=== PATIENT | female | born 1985 | race Caucasian/White ===

== ENCOUNTER → 2024-02-26 17:57 | Outpatient (REF) | payer BC, SELFPAY | LOC: MRI 17:57 | PROVIDERS: ATTENDING PHYSICIAN Family Medicine | DX: M54.16 Radiculopathy, lumbar region (principal); R20.2 Paresthesia of skin; R32 Unspecified urinary incontinence | CPT/HCPCS: 72148 ==

== ENCOUNTER → 2024-03-14 06:57 | Outpatient (REF) | payer BC, SELFPAY | LOC: HWRAD 06:57 | PROVIDERS: ATTENDING PHYSICIAN Family Medicine | DX: R79.89 Other specified abnormal findings of blood chemistry (principal); R94.5 Abnormal results of liver function studies | CPT/HCPCS: 76700 ==

== ENCOUNTER 2024-09-12 16:38 | Emergency (ER) | payer BC, SELFPAY ==
[2024-09-12 16:39] VITALS: BP 150/91
[2024-09-12 17:11] VITALS: BP 118/88
[2024-09-12] MEDS: OMNIPAQUE 50 ML PO (17:40)
[2024-09-12 17:42] VITALS: BMI 26.7
[2024-09-12 17:51] LABS: % Basophils 0.7 % (0-2); % Eosinophils 0.7 % (0-6); % Monocytes 6.4 % (1.7-9.3); % Neutrophils 52.2 % (42.2-75.2); Absolute Lymphocytes 1.8 10^3/uL (1.2-3.4); Absolute Monocytes 0.3 10^3/uL (0.1-0.6); Absolute Neutrophils 2.3 10^3/uL (1.4-6.5); Hematocrit 40.1 % (37.0-47.0); Hemoglobin 13.6 g/dL (12.0-16.0); Mean Corp Hgb Conc. 33.9 g/dL (33.0-37.0); Mean Corpuscular Hgb 28.6 pg (27.0-31.0); Mean Corpuscular Volume 84.4 fL (81.0-99.0); Mean Platelet Volume 9.1 fL (7.4-10.4); Nucleated Red Blood Cells % 0 %; Platelet Count 211 10^3/uL (130-400); Red Blood Cell Count 4.75 10^6/uL (4.20-5.40); Red Cell Dist. Width 12.3 % (11.5-14.5); White Blood Cell Count 4.4 10^3/uL (4.8-10.8)
--- NOTE | 2024-09-12 17:52 | EDRN ---
Pt is aware urine spec needed. Dr. Langston in room w/ pt at this time.
[2024-09-12 18:00] VITALS: BP 115/78
--- NOTE | 2024-09-12 18:00 | ED.GENMED ---
History of Present Illness
General
Chief Complaint: Abdominal Symptoms
Source: patient
Exam Limitations: none
Time Seen by Provider: 09/12/24 17:10
Nursing documentation reviewed up to this point in time: agreed with
History of Present Illness
History of Present Illness:
38-year-old female with past medical history of asthma, hyperlipidemia, PUD, endometriosis who presents with abdominal pain. Patient reports onset of symptoms about a week ago and they have been constant and generally worsening since then. She
reports that initially she attributed her symptoms to her normal endometriosis pain as they occurred around the same time of the month (she is currently on her menstrual period). However she says that her menstrual period is essentially finished
and typically at this point in her period the pain would be essentially resolved; instead pain has been getting worse. She also reports pain is in a different location typically she has pelvic pain but for the past week the pain has been located in
the right lower quadrant. She has associated nausea no vomiting. She has had some loose stools. She has not had any urinary symptoms. She did have her normal vaginal bleeding but no heavier than usual. Because symptoms were not improving she
called her GI doctor (Dr. Le) and was seen in the office today, when they evaluated her they referred her to the emergency room to be evaluated for appendicitis. Prior surgical history includes prior gastric sleeve, laparoscopy for
endometriosis, cholecystectomy, bilateral silpingectomy, abdominoplasty.
Past History
Past History
ED Past Medical History: Asthma, GERD (gastric ulcer) and Other (Concussions, endometriosis, Migraines, PCOS, anxiety, iron deficiency anemia, possible autonomic dysfunction, gastritis, UTI, Bleeding ulcers)
ED Past Surgical History: Cholecystectomy, Gynecological (Endoscopic procedure for endometriosis) and Other (Gastrectomy May 2017)
Social History
Tobacco: Former smoker
Alcohol: Occasional
Drug: Marijuana
Personal:
Living: with family
Employment: Employed
Family History
Family History: Other (No history of intracerebral masses she believes her grandmother maybe had intracerebral hemorrhage)
Review of Systems
Review of Systems
All Other Systems: ROS reviewed and negative except as documented in HPI and ROS
Constitutional: Denies fever or chills
EENT: Denies sore throat or runny nose
Respiratory: Denies trouble breathing
Cardiac: Denies chest pain
ABD/GI: Reports abdominal pain, nausea and diarrhea; Denies vomiting
: Reports bleeding; Denies dysuria, frequency or flank pain
Musculoskeletal: Denies neck pain or back pain
Neurological: Denies headache
Phy Exam
Physical Exam
Physical Exam:
General: Awake, alert, oriented x3; appears uncomfortable
Head: Normocephalic, atraumatic
Eyes: Conjunctiva normal, sclera anicteric
Throat: Airway intact, handling secretions
Neck: Trachea midline, supple without meningismus
Lungs: Breathing comfortably no distress
Heart: Regular rate
Abd: Soft, non distended, tender to palpation right lower quadrant with guarding, no masses
Neuro: No gross deficit
Extremities: No edema in extremities, warm well-perfused
Scores
Heart Failure Risk
Heart Failure Risk Score: Not Applicable
Heart Score for Chest Pain Patients
STEMI patient?: Not applicable
Withdrawal Assessment of Alcohol
Withdrawal Assessment Completed?: Not applicable
Course
Orders/Labs/Results
Orders:
Orders
09/12/24 17:11
CT Abd/pel W Iv And Oral Contr Urgent
Comment: surg hx: cholecystectomy, gastric sleeve, salping
Reason For Exam: RLQ abd pain
Iohexol [Omnipaque] See Protocol PO NOW STA
Test Result ONCE
09/12/24 17:36
CRP [C-Reactive Protein] Urgent
Complete Blood Count/With Diff Urgent
Comprehensive Metabolic Panel Urgent
ESR [Erythrocyte Sed Rate] Urgent
HCG, Serum Qualitative Screen Urgent
09/12/24 18:00
0.9% Sodium Chloride 1000 ml [Nss] 1,000 ml IV BOLUS
HYDROmorphone [Dilaudid] 0.5 mg IV NOW STA
09/12/24 18:09
Ondansetron Injectable [Zofran] 4 mg IV NOW STA
09/12/24 20:17
Urinalysis Reflex To Culture Urgent
Date Specimen was Collected: 09/12/24
Time Specimen was Collected: 20:13
09/12/24 20:58
Amoxicillin 875 mg/Clav 125 mg [Augmentin 875 mg/125 mg] 1 tablet PO NOW STA
HYDROmorphone [Dilaudid] 0.5 mg IV NOW STA
Abnormal Lab Results
09/12/24
17:36
WBC 4.4 L 10^3/uL
(4.8-10.8)
AST 78 H U/L
(14-36)
ALT 127 H U/L
(0-35)
09/12/24 17:36
09/12/24 17:36
Vital Signs
Initial and Last Documented VS:
Initial Vital Signs
Temp Pulse Resp BP Pulse Ox
36.9 C 66 16 150/91 100
09/12/24 16:39 09/12/24 16:39 09/12/24 16:39 09/12/24 16:39 09/12/24 16:39
Last Documented Vital Signs
Temp Pulse Resp BP Pulse Ox
36.9 C 45 12 113/82 100
09/12/24 16:39 09/12/24 20:13 09/12/24 20:13 09/12/24 20:13 09/12/24 20:13
MDM/Problems Addressed
Differential Diagnosis Includes:
Appendicitis, ovarian cyst, endometriosis, inflammatory bowel disease, enteritis/colitis
MDM/Problems Addressed:
38-year-old female with history as documented presents for evaluation of right lower quadrant pain for the past week�initially attributed to her normal endometriosis pain but pain is in a different location, more intense and longer lasting.
Hypertensive otherwise normal vitals. Physical exam as above. Plan to place an IV check labs including CBC and a CMP, ESR/CRP. Check hCG. Check urinalysis. Check CT abdomen pelvis. Treat pain and provide fluids. Monitor closely reassess at
the above.
Labs reviewed: CBC and CMP unremarkable�LFTs marginally abnormal but stable. ESR CRP not elevated. hCG negative. Urinalysis no infection. CT abdomen pelvis shows mild colitis but normal appendix, no other acute pathology. Clinical reassessment
patient still having some pain but she feels it is manageable. I did offer admission for pain control but she does not feel this is necessary. Will cover with antibiotics given duration of symptoms. Discussed with GI they will follow-up in the
office. Spoke about return precautions all questions answered.
Chronic conditions affecting care:
Endometriosis
Acute Exacerbation and/or Progression of Chronic Illness:
Hypertensive likely from pain�treat pain but hold on emergent antihypertensives
Acute Exacerbation and/or Progression of Chronic Illness: HTN
*Radiology
Radiology exam reviewed: radiology read reviewed
*Pulse Oximetry
Patient hypoxic: no
*Critical Care Note
Total Time (30-74mins, 75-104mins- exclusive of procedures): Not Applicable
Data Reviewed
Review of Other/Old Records Reveals: Labs and Records
Source: patient, records and physician (Discussed with referring physician (Dr. Le))
Patient Management
Discussion with other providers: Drug Clerk (Discussed with gastroenterology)
ED Attending Note
-
Portions of this chart may have been created with voice recognition software.� Occasional wrong word or��sound alike� substitutions may have occurred due to the inherent limitations of voice recognition software.
Discharge Plan
Departure
Patient Disposition: Home (Routine Discharge)
Date of Disposition: 09/12/24
Time of Disposition: 21:01
Patient with high blood pressure during this ER visit?: Yes
Discharge Problem:
Colitis
Instructions: [place] Diet, Abdominal Pain, Adult ED
Prescriptions:
New
amoxicillin-pot clavulanate 875-125 mg tablet
1 tab PO BID Qty: 14 0RF
No Action
venlafaxine 75 MG capsule,extended release 24hr
75 mg PO HS
lorazepam 1 MG tablet
1 mg PO DAILYPRN PRN (Reason: anxiety)
pediatric multivitamin no.17 1 TABLET tablet,chewable
1 ea PO DAILY
Ferrous Gluconate
27 mg PO DAILY
Patient Comments:
HOLD FOR CONSTIPATION
sennosides [senna] 1 TABLET tablet
1 tab PO HS 0RF
Rx Instructions:
while you take Oxycodone
polyethylene glycol 3350 17 GRAMS powder in packet
17 grams PO DAILY 0RF
pantoprazole 40 MG tablet,delayed release (DR/EC)
40 mg PO DAILY Qty: 30 0RF
docusate sodium 100 MG capsule
100 mg PO BID 0RF
oxycodone 5 MG tablet
5 mg PO Q4HPRN PRN (Reason: moderate pain) Qty: 25 0RF
simethicone [Gas Relief (simethicone)] 80 MG tablet,chewable
80 mg PO TIDPRN PRN (Reason: gas) Qty: 30 0RF
methylprednisolone [Medrol (Jose)] 4 MG tablets,dose pack
4 tab PO . DIRECT Qty: 1 0RF
diazepam 5 MG tablet
5 mg PO TIDPRN PRN (Reason: Pain, spasm) Qty: 10 0RF
cephalexin 500 MG capsule
500 mg PO QID Qty: 20 0RF
cefuroxime axetil 500 MG tablet
500 mg PO BID Qty: 20 0RF
promethazine 25 MG tablet
25 mg PO Q6HPRN PRN (Reason: nausea) Qty: 12 0RF
ondansetron 4 MG tablet,disintegrating
4 mg PO TIDPRN PRN (Reason: nausea) Qty: 15 0RF
methylprednisolone [Methylpred DP] 4 mg tablets,dose pack
See Rx Instructions .ROUTE .COMPLEX Qty: 21 0RF
Rx Instructions:
orally per package directions
Referrals:
Carlo Le MD [Active] - Call in 1-3 days for appt
Shadi Arredondo MD [Family Provider] -
Activity Restrictions/Additional Instructions:
Thank you for visiting the Emergency Department at [facility].
1. Please schedule a follow up appointment as directed. Call first thing tomorrow morning to make an appointment.
2. If indicated, please take your medications as instructed and indicated on discharge paperwork.
3. If any of your symptoms do not improve, or persist, or become more severe within 6-12 hours, please return to the emergency department for further care.
4. Please return to the emergency department if you develop a headache, neck pain/stiffness, fever greater than 100.4F, chest pain, shortness of breath, persistent nausea, vomiting, slurred speech, difficulty walking, numbness/tingling, weakness,
signs of infection or any other symptoms that are worrisome to you.
Please call [phone] if you have any questions.
Interventions
Interventions:
*Risk Screen - Suicide Last Done: 09/12/24 17:47
*General Assessment Last Done: 09/12/24 17:48
*Neglect/Abuse Screening Last Done: 09/12/24 17:47
ED- Fall Risk Assessment Last Done: 09/12/24 17:42
*ED COVID-19 Vaccine History Last Done: 09/12/24 17:47
HA-Ahzamw-Plozcgcjgx Assessment Last Done: 09/12/24 17:42
Discharge Date and Time
Print Language: OCCITAN
[2024-09-12 18:01] LABS: Erythrocyte Sed Rate 4 mm/hour (0-20)
[2024-09-12 18:07] LABS: ALT (SGPT) 127 U/L (0-35); AST (SGOT) 78 U/L (14-36); Albumin 4.5 g/dl (3.5-5.0); Alkaline Phosphatase 71 U/L (38-126); Blood Urea Nitrogen 11 mg/dl (7-17); Calcium 9.9 mg/dl (8.4-10.2); Carbon Dioxide 29 mmol/L (22-30); Estimated Creatinine Clearance 116 ml/min; Glucose 90 mg/dl (70-99); Total Bilirubin 0.4 mg/dl (0.2-1.3); Total Protein 7.1 g/dl (6.3-8.2); eGFR > 60.00
[2024-09-12 18:10] LABS: C-Reactive Protein < 5.00 mg/L (0.0-10.00)
[2024-09-12] MEDS: DILAUDID 0.5 MG IV ×2 (18:13→21:42)
[2024-09-12] MEDS: NSS 1000 IV (18:13)
[2024-09-12] MEDS: ZOFRAN 4 MG IV (18:14)
[2024-09-12 18:21] LABS: Chloride 104 mmol/L (98-107); Potassium 4.4 mmol/L (3.5-5.1); Sodium 142 mmol/L (135-145)
[2024-09-12 18:40] LABS: HCG, Serum Qualitative Screen Negative
[2024-09-12 19:00] VITALS: BP 106/80
--- NOTE | 2024-09-12 19:05 | EDRN ---
Pt states pain is less and more tolerable at 6/10 but still has intermittent pain at 8/10.
[2024-09-12 20:13] VITALS: BP 113/82
--- NOTE | 2024-09-12 20:19 | EDRN ---
Urine spec obtained and sent. Pt states after CT scan pain was down to 5/10 though now has been increasing and is 7.5/10 at this time.
[2024-09-12 20:24] LABS: Urine Albumin Negative (Neg - Trace); Urine Bilirubin Negative (Negative); Urine Character Clear (Clear); Urine Color Yellow; Urine Glucose Negative (Negative); Urine Ketone Negative (Negative); Urine Leukocyte Negative (Negative); Urine Nitrite Negative (Negative); Urine Occult Blood Negative (Negative); Urine Urobilinogen Negative (Neg - 1+)
--- NOTE | 2024-09-12 20:54 | EDRN ---
Dr. Langston in room w/pt at this time.
[2024-09-12 21:00] VITALS: BP 114/87
[2024-09-12] MEDS: AUGMENTIN 875 MG/125 MG 1 TABLET PO (21:42)
== END 2024-09-12 21:49 | disposition home or self-care (01) ==
LOC: EMR 16:38
PROVIDERS: EMERGENCY PHYSICIAN Emergency Medicine; FAMILY PHYSICIAN Family Medicine
DX: K52.9 Noninfective gastroenteritis and colitis, unspecified (principal); R03.0 Elevated blood-pressure reading, without diagnosis of hypertension; J45.909 Unspecified asthma, uncomplicated; E78.5 Hyperlipidemia, unspecified; Z87.891 Personal history of nicotine dependence
CPT/HCPCS: 99285; 96374; 96375; 96361 ×2; 96376; 74177; 80053; 81003; 84703; 85025; 85652; 86140; Q9967

== ENCOUNTER 2025-10-17 12:28 | Emergency (ER) | payer BC, SELFPAY ==
[2025-10-17 12:30] VITALS: BP 144/64
[2025-10-17 13:31] LABS: Hematocrit 35.0 % (37.0-47.0); Hemoglobin 11.5 g/dL (12.0-16.0); Mean Corp Hgb Conc. 32.9 g/dL (33.0-37.0); Mean Corpuscular Volume 77.8 fL (81.0-99.0); Nucleated Red Blood Cells % 0 %; Platelet Count 252 10^3/uL (130-400); Red Cell Dist. Width 14.3 % (11.5-14.5)
--- NOTE | 2025-10-17 13:33 | ED.GENMED ---
History of Present Illness
<Balbir Sandoval PA-C - Last Filed: 10/17/25 15:38>
General
Chief Complaint: Abdominal Pain
Source: patient
Time Seen by Provider: 10/17/25 13:18
History of Present Illness
History of Present Illness:
40-year-old female with past medical history of chronic pain syndrome, endometriosis, status post previous gastric bypass, previous pancreatitis presenting to the emergency department for evaluation of right-sided abdominal pain, 10 days late on her
menstrual (previous bilateral salpingectomy) accompanied with mild nausea but no vomiting. Patient discussed her pain via telephone with her primary care provider/[facility] and was recommended to come to the ER for CT imaging. Patient
with multiple previous abdominal surgeries including the gastric bypass as well as status postcholecystectomy and multiple previous endometriosis laparoscopic procedures. Patient still has her appendix. She took her usual chronic pain medication
this morning. Notes she cannot take anti-inflammatories. History of similar requiring imaging in the past.
Past History
<Balbir Sandoval PA-C - Last Filed: 10/17/25 15:38>
Past History
ED Past Medical History: Asthma, GERD (gastric ulcer) and Other (Concussions, endometriosis, Migraines, PCOS, anxiety, iron deficiency anemia, possible autonomic dysfunction, gastritis, UTI, Bleeding ulcers)
ED Past Surgical History: Cholecystectomy, Gynecological (Endoscopic procedure for endometriosis) and Other (Gastrectomy May 2017)
Social History
Tobacco: Former smoker
Alcohol: Occasional
Drug: Marijuana
Personal:
Living: with family
Employment: Employed
Family History
Family History: Other (No history of intracerebral masses she believes her grandmother maybe had intracerebral hemorrhage)
Review of Systems
<Balbir Sandoval PA-C - Last Filed: 10/17/25 15:38>
Review of Systems
All Other Systems: ROS reviewed and negative except as documented in HPI and ROS
Phy Exam
<Balbir Sandoval PA-C - Last Filed: 10/17/25 15:38>
Physical Exam
Physical Exam:
GENERAL: Alert , in no apparent distress but does appear uncomfortable
EYE: clear conjunctiva b/l
HEAD: NCAT
ENT: o/p clr, mmm.
CARDIAC: Regular rate and rhythm .
LUNGS: Clear breath sounds bilaterally, no acute respiratory distress, no wheezes/rales/rhonchi
ABDOMEN: Soft, without focal tenderness, no r/g, no cvat
NEUROLOGICAL: Alert and oriented
SKIN: Warm and dry, skin intact.
MUSCULOSKELETAL: No edema, well perfused.
PSYCH: Normal and appropriate interaction.
Scores
<Balbir Sandoval PA-C - Last Filed: 10/17/25 15:38>
Heart Failure Risk
Heart Failure Risk Score: Not Applicable
Heart Score for Chest Pain Patients
STEMI patient?: Not applicable
Withdrawal Assessment of Alcohol
Withdrawal Assessment Completed?: Not applicable
Course
<Balbir Sandoval PA-C - Last Filed: 10/17/25 15:38>
Orders/Labs/Results
Orders:
Orders
10/17/25 13:18
Test Result ONCE
10/17/25 13:25
Complete Blood Count/With Diff Urgent
Comprehensive Metabolic Panel Urgent
HCG, Serum Qualitative Screen Urgent
Lipase Urgent
10/17/25 13:29
CT Abd/pel W Iv And Oral Contr Urgent
Comment:
Reason For Exam: right sided abd pain
Iohexol [Omnipaque] See Protocol PO NOW STA
10/17/25 13:44
Ondansetron Injectable [Zofran] 4 mg .ROUTE .STK-MED ONE
10/17/25 13:45
Ondansetron Injectable [Zofran] 4 mg IV NOW STA
10/17/25 15:08
Urinalysis Reflex To Culture Urgent
Date Specimen was Collected: 10/17/25
Time Specimen was Collected: 15:07
10/17/25 15:25
HYDROmorphone [Dilaudid] 0.5 mg IV NOW STA
Abnormal Lab Results
10/17/25
13:25
WBC 4.7 L 10^3/uL
(4.8-10.8)
Hgb 11.5 L g/dL
(12.0-16.0)
Hct 35.0 L %
(37.0-47.0)
MCV 77.8 L fL
(81.0-99.0)
MCH 25.6 L pg
(27.0-31.0)
MCHC 32.9 L g/dL
(33.0-37.0)
Sodium 133 L mmol/L
(135-145)
10/17/25 13:25
10/17/25 13:25
Vital Signs
Initial and Last Documented VS:
Initial Vital Signs
Temp Pulse Resp BP Pulse Ox
97.8 F 69 16 144/64 100
10/17/25 12:30 10/17/25 12:30 10/17/25 12:30 10/17/25 12:30 10/17/25 12:30
Last Documented Vital Signs
Temp Pulse Resp BP Pulse Ox
98.5 F 60 18 107/70 100
10/17/25 15:11 10/17/25 15:11 10/17/25 15:11 10/17/25 15:11 10/17/25 15:11
Marcellelt;Marnie Sierra, CARDIAC CATH LAB RADIOLOGY TECHNOLOGIST - Last Filed: 10/17/25 23:02>
Orders/Labs/Results
Orders:
Orders
10/17/25 13:18
Test Result ONCE
10/17/25 13:25
Complete Blood Count/With Diff Urgent
Comprehensive Metabolic Panel Urgent
HCG, Serum Qualitative Screen Urgent
Lipase Urgent
10/17/25 13:29
CT Abd/pel W Iv And Oral Contr Urgent
Comment:
Reason For Exam: right sided abd pain
Iohexol [Omnipaque] See Protocol PO NOW STA
10/17/25 13:44
Ondansetron Injectable [Zofran] 4 mg .ROUTE .STK-MED ONE
10/17/25 13:45
Ondansetron Injectable [Zofran] 4 mg IV NOW STA
10/17/25 15:08
Urinalysis Reflex To Culture Urgent
Date Specimen was Collected: 10/17/25
Time Specimen was Collected: 15:07
10/17/25 15:25
HYDROmorphone [Dilaudid] 0.5 mg IV NOW STA
Abnormal Lab Results
10/17/25
13:25
WBC 4.7 L 10^3/uL
(4.8-10.8)
Hgb 11.5 L g/dL
(12.0-16.0)
Hct 35.0 L %
(37.0-47.0)
MCV 77.8 L fL
(81.0-99.0)
MCH 25.6 L pg
(27.0-31.0)
MCHC 32.9 L g/dL
(33.0-37.0)
Sodium 133 L mmol/L
(135-145)
10/17/25 13:25
10/17/25 13:25
Vital Signs
Initial and Last Documented VS:
Initial Vital Signs
Temp Pulse Resp BP Pulse Ox
97.8 F 69 16 144/64 100
10/17/25 12:30 10/17/25 12:30 10/17/25 12:30 10/17/25 12:30 10/17/25 12:30
Last Documented Vital Signs
Temp Pulse Resp BP Pulse Ox
98.5 F 60 18 107/70 100
10/17/25 15:11 10/17/25 15:11 10/17/25 15:11 10/17/25 15:11 10/17/25 15:11
<Balbir Sandoval PA-C - Last Filed: 10/17/25 15:38>
MDM/Problems Addressed
Differential Diagnosis Includes:
Chronic pain exacerbation
Appendicitis
Renal/ureteral colic
Colitis
Diverticulitis
UTI
No concern for given previous salpingectom
MDM/Problems Addressed:
40-year-old female presented to the ER at the request of her primary care provider for evaluation of right-sided abdominal pain. Symptoms ongoing for few days, no improvement with usual home care as well as her usual medication for pain. No fevers
but does endorse some mild nausea. Declining anything for pain presently. Will obtain CT scan. Labs ordered. Disposition pending.
<Marnie Sierra NP - Last Filed: 10/17/25 23:02>
MDM/Problems Addressed
MDM/Problems Addressed:
40-year-old female presented to the ER at the request of her primary care provider for evaluation of right-sided abdominal pain. Symptoms ongoing for few days, no improvement with usual home care as well as her usual medication for pain. No fevers
but does endorse some mild nausea. Declining anything for pain presently. Will obtain CT scan. Labs ordered. Disposition pending.
CT abdomen pelvis radiology port read: IMPRESSION: Probable right ovarian cyst. Confirmation with pelvic ultrasound recommended. New.
Minimal free fluid in the pelvis likely physiologic. A recently ruptured ovarian cyst cannot be excluded. Increased.
Moderate fecal material in the colon.
Prior cholecystectomy. Postsurgical change about the stomach.
Diverticulosis.
Reviewed results with patient and her at bedside. Copy of report and disc given to pt. She has appointment in [place] next week with a pelvic specialist.
She denies any new or worse right side abd pain and will speak to her specialist about the new right ovarian cyst.
She has pain meds at home if needed. She is appreciative of the care.
Stable for discharge.
<Balbir Sandoval PA-C - Last Filed: 10/17/25 15:38>
*Pulse Oximetry
SaO2: 100
Oxygen Mode of Delivery: Room air
Patient hypoxic: no
Data Reviewed
Review of Other/Old Records Reveals: Labs, Records and Radiology Studies
<Marnie Sierra NP - Last Filed: 10/17/25 23:02>
*Critical Care Note
Total Time (30-74mins, 75-104mins- exclusive of procedures): Not Applicable
<Balbir Sandoval PA-C - Last Filed: 10/17/25 15:38>
Comment
Comment:
On reevaluation patient endorses that she still has pain although nausea has improved. Will treat with half a milligram of Dilaudid for further pain control. Awaiting CT imaging.
ED Attending Note
<Balbir Sandoval PA-C - Last Filed: 10/17/25 15:38>
-
Portions of this chart may have been created with voice recognition software.� Occasional wrong word or��sound alike� substitutions may have occurred due to the inherent limitations of voice recognition software.
Discharge Plan
Departure
Patient Disposition: Home (Routine Discharge)
Date of Disposition: 10/17/25
Time of Disposition: 16:52
Patient with high blood pressure during this ER visit?: No
Condition: Fair
Discharge Problem:
Abdominal pain, Constipation, Ovarian cyst, Endometriosis, Acute exacerbation of chronic abdominal pain
Instructions: Constipation, Adult (DC), Ovarian Cyst (DC), Abdominal Pain
Prescriptions:
No Action
venlafaxine 75 MG capsule,extended release 24hr
75 mg PO HS
lorazepam 1 MG tablet
1 mg PO DAILYPRN PRN (Reason: anxiety)
pediatric multivitamin no.17 1 TABLET tablet,chewable
1 ea PO DAILY
Ferrous Gluconate
27 mg PO DAILY
Patient Comments:
HOLD FOR CONSTIPATION
sennosides [senna] 1 TABLET tablet
1 tab PO HS 0RF
Rx Instructions:
while you take Oxycodone
polyethylene glycol 3350 17 GRAMS powder in packet
17 grams PO DAILY 0RF
pantoprazole 40 MG tablet,delayed release (DR/EC)
40 mg PO DAILY Qty: 30 0RF
docusate sodium 100 MG capsule
100 mg PO BID 0RF
oxycodone 5 MG tablet
5 mg PO Q4HPRN PRN (Reason: moderate pain) Qty: 25 0RF
simethicone [Gas Relief (simethicone)] 80 MG tablet,chewable
80 mg PO TIDPRN PRN (Reason: gas) Qty: 30 0RF
methylprednisolone [Medrol (Jose)] 4 MG tablets,dose pack
4 tab PO . DIRECT Qty: 1 0RF
diazepam 5 MG tablet
5 mg PO TIDPRN PRN (Reason: Pain, spasm) Qty: 10 0RF
cephalexin 500 MG capsule
500 mg PO QID Qty: 20 0RF
cefuroxime axetil 500 MG tablet
500 mg PO BID Qty: 20 0RF
promethazine 25 MG tablet
25 mg PO Q6HPRN PRN (Reason: nausea) Qty: 12 0RF
ondansetron 4 MG tablet,disintegrating
4 mg PO TIDPRN PRN (Reason: nausea) Qty: 15 0RF
methylprednisolone [Methylpred DP] 4 mg tablets,dose pack
See Rx Instructions .ROUTE .COMPLEX Qty: 21 0RF
Rx Instructions:
orally per package directions
amoxicillin-pot clavulanate 875-125 mg tablet
1 tab PO BID Qty: 14 0RF
Referrals:
Your Pelvic specialist in [place] [Other] - Keep scheduled appt
Kamila Mills MD [Family Provider, Internal Medicine]
Activity Restrictions/Additional Instructions:
As we discussed, besides your typical abdominal pain, you do have a lot of stool in your colon so treat yourself for constipation and maybe that will relieve some of the pressure/pain in your abdomen
Interventions
Interventions:
*Risk Screen - Suicide Last Done: 10/17/25 12:30
*General Assessment Last Done: 10/17/25 13:28
*Neglect/Abuse Screening Last Done: 10/17/25 12:30
*ED COVID-19 Vaccine History Last Done: 10/17/25 13:04
*ED Influenza Vaccine History Last Done: 10/17/25 13:04
[facility] Fall Risk Assessment Tool Last Done: 10/17/25 13:03
*Nursing Disposition Last Done: 10/17/25 17:12
VK-Zuovrl-Cskaupwjmf Assessment Last Done: 10/17/25 13:29
Discharge Date and Time
Discharge Date/Time: 10/17/25 17:12
Print Language: BURUNDIAN
[2025-10-17] MEDS: OMNIPAQUE 50 ML PO (13:34)
[2025-10-17] MEDS: ZOFRAN 4 MG IV (13:45)
[2025-10-17 13:47] LABS: HCG, Serum Qualitative Screen Negative
[2025-10-17 13:50] LABS: ALT (SGPT) 17 U/L (0-35); AST (SGOT) 25 U/L (14-36); Albumin 4.1 g/dl (3.5-5.0); Alkaline Phosphatase 47 U/L (38-126); Blood Urea Nitrogen 11 mg/dl (7-17); Calcium 9.5 mg/dl (8.4-10.2); Carbon Dioxide 24 mmol/L (22-30); Chloride 106 mmol/L (98-107); Glucose 83 mg/dl (70-99); Lipase 52 U/L (23-300); Potassium 4.2 mmol/L (3.5-5.1); Sodium 133 mmol/L (135-145); Total Protein 6.7 g/dl (6.3-8.2); eGFR > 60.00
[2025-10-17 15:11] VITALS: BP 107/70
[2025-10-17] MEDS: DILAUDID 0.5 MG IV (15:30)
[2025-10-17 15:36] LABS: Urine Character Clear (Clear)
== END 2025-10-17 17:12 | disposition home or self-care (01) ==
LOC: EMR 12:28
PROVIDERS: Physician Assistant Medical; EMERGENCY PHYSICIAN Emergency Medicine; FAMILY PHYSICIAN Internal Medicine
DX: K59.00 Constipation, unspecified (principal); N83.201 Unspecified ovarian cyst, right side; N80.9 Endometriosis, unspecified; G89.29 Other chronic pain; R10.9 Unspecified abdominal pain; J45.909 Unspecified asthma, uncomplicated; D50.9 Iron deficiency anemia, unspecified; K21.9 Gastro-esophageal reflux disease without esophagitis; F41.9 Anxiety disorder, unspecified; Z98.84 Bariatric surgery status; Z87.891 Personal history of nicotine dependence; Z87.820 Personal history of traumatic brain injury
CPT/HCPCS: 99284; 96374; 96375; 74177; 80053; 81003; 83690; 84703; 85025; Q9967